=== PATIENT | male | born 1975 | race Caucasian/White ===

== ENCOUNTER 2016-12-08 01:44 | Emergency (ER) | payer MEDICAID, OTHER ==
[~2016-12-08] VITALS: Ht 165.1 cm; Wt 84.0 kg
[2016-12-08] MEDS ORDERED: FOLIC ACID 1 MG, THIAMINE HCL 100 MG, MVI, ADULT NO.1 10 ML in DEXTROSE 5% WATER 1,000 ML IV ONE ×4 (03:00)
[2016-12-08] MEDS ORDERED: LORAZEPAM 2MG/ML CPJ IV ONE (03:00)
[2016-12-08] MEDS ORDERED: ONDANSETRON HCL 4MG/2ML VIAL IV ONE (03:00)
[2016-12-08 03:32] LABS: HEMATOCRIT. 45.8 % (42.0-52.0); HEMOGLOBIN. 15.9 g/dL (14.0-18.0); MEAN CORPUSCULAR HEMOGLOBIN 31.9 pg (28.0-32.0); MEAN CORPUSCULAR VOLUME 91.9 fL (80.0-94.0); MEAN PLATELET VOLUME 7.6 fl (7.4-10.4); PLATELET 217 x1000/uL (130-400); RED BLOOD CELL COUNT 4.98 mill/uL (4.7-6.1); RED CELL DISTRIBUTION WIDTH 13.5 % (11.6-14.6)
[2016-12-08 03:37] LABS: CHLORIDE 95 mEq/L (98-107)
[2016-12-08] MEDS ORDERED: THIAMINE HCL 100 MG/1 ML 2ML VIAL ONE (03:44)
[2016-12-08 03:46] LABS: CARBON DIOXIDE 26 mEq/L (21-32); ETHANOL BLOOD < 10 mg/dL
[2016-12-08 04:06] LABS: CLARITY URINE CLEAR (CLEAR); COLOR URINE YELLOW (YELLOW); GLUCOSE URINE NEGATIVE (NEGATIVE); KETONES URINE 4+ (NEGATIVE); LEUKOCYTE ESTERASE URINE NEGATIVE (NEGATIVE); NITRITE URINE NEGATIVE (NEGATIVE); OCCULT BLOOD URINE NEGATIVE (NEGATIVE); PROTEIN URINE NEGATIVE (NEGATIVE); SPECIFIC GRAVITY URINE 1.018 (1.005-1.030); UROBILINOGEN URINE 0.2 E.U./dL (0.2-1.0)
[2016-12-08 04:14] LABS: *AMPHETAMINES SCREEN URINE NEGATIVE (NEGATIVE); *BARBITURATES SCREEN URINE NEGATIVE (NEGATIVE); *BENZODIAZEPINES SCREEN URINE NEGATIVE (NEGATIVE); *COCAINE SCREEN URINE NEGATIVE (NEGATIVE); CANNABINOID URINE SCREEN NEGATIVE (NEGATIVE); METHADONE URINE SCREEN NEGATIVE (NEGATIVE); OPIATES URINE SCREEN NEGATIVE (NEGATIVE); PHENCYCLIDINE URINE SCREEN NEGATIVE (NEGATIVE)
[2016-12-08 04:47] LABS: PLATELET ESTIMATE NORMAL
[2016-12-08 06:39] VITALS: BP 130/78
== END 2016-12-08 07:10 | disposition home or self-care (01) ==
LOC: ER 01:46
DX: F10.239 Alcohol dependence with withdrawal, unspecified (principal); F12.10 Cannabis abuse, uncomplicated; Z88.8 Allergy status to other drugs, medicaments and biological substances; Y90.0 Blood alcohol level of less than 20 mg/100 ml
CPT/HCPCS: 36415; 80053; 80305; 81003; 85025; 96365; 96366; 96375; 99285; G0482; J2060; J2405; J3411; J7030; Z7610

== ENCOUNTER 2017-06-09 17:54 | Emergency (ER) | payer SELFPAY ==
[~2017-06-09] VITALS: Ht 165.1 cm; Wt 79.5 kg
[2017-06-09 18:12] VITALS: BP 135/93
[2017-06-09] MEDS ORDERED: TETANUS, DIPHTHERIA, PERTUSSIS VAC/PF 0.5ML (>7YR OLD) IM ONE (19:00)
[2017-06-09] MEDS ORDERED: BACITRACIN ZINC OINT UDPKT TOP ONE (19:00)
[2017-06-09] MEDS ORDERED: PIPERACILLIN/TAZOBACTAM 3.375GM/50ML PREMIX IV ONE (19:00)
[2017-06-09] MEDS ORDERED: PIPERACILLIN/TAZ 3.375G PREMIX 50 ML IV NR (19:00)
== END 2017-06-09 20:22 | disposition left against medical advice (07) ==
LOC: ER 17:54
DX: S51.851A Open bite of right forearm, initial encounter (principal); W55.01XA Bitten by cat, initial encounter; Y93.89 Activity, other specified; Y92.89 Other specified places as the place of occurrence of the external cause; Y99.8 Other external cause status
CPT/HCPCS: 99281; Z7610; 90715; J2543

== ENCOUNTER 2017-06-11 09:35 | Emergency (ER) | payer SELFPAY ==
[~2017-06-11] VITALS: Ht 165.1 cm; Wt 79.0 kg
[2017-06-11 10:02] VITALS: BP 127/88
== END 2017-06-11 11:02 | disposition home or self-care (01) ==
LOC: ER 10:34
DX: S51.851A Open bite of right forearm, initial encounter (principal); W55.01XA Bitten by cat, initial encounter; Y93.K3 Activity, grooming and shearing an animal; Y92.69 Other specified industrial and construction area as the place of occurrence of the external cause; Y99.0 Civilian activity done for income or pay
CPT/HCPCS: 99283

== ENCOUNTER 2017-06-19 21:01 | Emergency (ER) | payer SELFPAY ==
[~2017-06-19] VITALS: Ht 165.1 cm; Wt 81.0 kg
[2017-06-20] MEDS ORDERED: DIAZEPAM 5 MG TABLET PO ONE (00:15)
[2017-06-20 01:55] VITALS: BP 135/80
[2017-06-20] MEDS ORDERED: METOCLOPRAMIDE HCL 10MG/2ML VIAL IV ONE (02:45)
[2017-06-20] MEDS ORDERED: DIPHENHYDRAMINE 50MG/ML VIAL IV ONE (02:45)
== END 2017-06-20 04:47 | disposition home or self-care (01) ==
LOC: ER 21:01
DX: G44.209 Tension-type headache, unspecified, not intractable (principal); S11.95XA Open bite of unspecified part of neck, initial encounter; W55.01XA Bitten by cat, initial encounter; Y93.89 Activity, other specified; Y92.89 Other specified places as the place of occurrence of the external cause; F10.10 Alcohol abuse, uncomplicated; Y90.9 Presence of alcohol in blood, level not specified; E78.00 Pure hypercholesterolemia, unspecified
CPT/HCPCS: 99281; J1200; Z7610; J2765